=== PATIENT | female | born 1965 | race Two or more races ===

== ENCOUNTER 2019-12-18 06:17 | Day surgery (SDC) | payer MEDICAID ==
[~2019-12-18 06:17] MED LIST: DOCU-141 PO; OXYC5CAP18 PO
[2019-12-18] MEDS ORDERED: MIDAZOLAM HCL 2 MG/2ML VIAL ONE (07:56)
[2019-12-18] MEDS ORDERED: FENTANYL PF 100MCG/2ML AMPUL ONE (07:57)
[2019-12-18] MEDS ORDERED: FENTANYL PF 250MCG/5ML AMPUL ONE (07:57)
[2019-12-18] MEDS ORDERED: FAMOTIDINE/PF INJ 20 MG/2 ML VIAL IV ONE (07:58)
[2019-12-18] MEDS ORDERED: BUPIVACAINE 0.25% 75 MG/30 ML VIAL ONE (07:58)
[2019-12-18] MEDS ORDERED: BUPIVACAINE 0.5 % PF 150 MG/30 ML VIAL ONE (08:09)
[2019-12-18] MEDS ORDERED: BACITRACIN 50000 UNITS/VIAL ONE (08:09)
[2019-12-18] MEDS ORDERED: HYDROCODONE/APAP 5/325MG 1 EACH TABLET PO PRN ×2 (10:00)
[2019-12-18] MEDS ORDERED: HYDROCODONE/APAP 5/325MG 1 EACH TABLET ONE (10:05)
[2019-12-18] MEDS ORDERED: HYDROMORPHONE 1 MG/1 ML DISP.SYRIN ONE (10:19)
[2019-12-18] MEDS ORDERED: ALPRAZOLAM 0.5 MG TABLET ONE (10:33)
[2019-12-18] MEDS ORDERED: ALPRAZOLAM 0.5 MG TABLET PO ONE (11:00)
== END 2019-12-18 11:50 | disposition home or self-care (01) ==
LOC: DS 06:17
PROVIDERS: ATTEND Specialist
DX: S82.031A Displaced transverse fracture of right patella, initial encounter for closed fracture (principal); I10 Essential (primary) hypertension; J44.9 Chronic obstructive pulmonary disease, unspecified; F41.9 Anxiety disorder, unspecified; F17.210 Nicotine dependence, cigarettes, uncomplicated; Z90.49 Acquired absence of other specified parts of digestive tract; Z96.641 Presence of right artificial hip joint; Z98.51 Tubal ligation status; Z79.899 Other long term (current) drug therapy; X58.XXXA Exposure to other specified factors, initial encounter; Y93.89 Activity, other specified; Y92.89 Other specified places as the place of occurrence of the external cause; Y99.8 Other external cause status
CPT/HCPCS: 27524; C1769; J0690; J1170; J2250; J2405; J2704; J2765; J3010 ×2; J3490 ×3